=== PATIENT | female | born 2000 | race Caucasian/White ===

== ENCOUNTER 2024-11-25 09:24 | Emergency (ER) | payer OTHER ==
[2024-11-25 09:32] VITALS: TEMP 97.2
--- NOTE | 2024-11-25 09:46 | ERPHSYRPT ---
- History of Present Illness Time Seen by Provider: 11/25/24 09:40 Historian: patient, family Exam Limitations: no limitations Patient Subjective Stated Complaint: PT HERE FOR N/V/D SINCE LAST NIGHT, NO FEVER Triage Nursing Assessment: PT ALERT, WALKED IN, PALE. SKIN WARM AND DRY, RESP EASY, MOVES ALL EXT WELL, NO EDEMA NOTED, ABD SOFT WITH BS Physician History: This is a 24-year-old white female patient who was brought to the emergency department by her spouse secondary to vomiting and diarrhea that began yesterday afternoon/evening. The patient's primary care provider is Dr. Schwartz. Patient's mother and other family members have had similar symptoms. Patient is unable to hold any liquids down. Patient denies chest pain. Patient denies cough. Patient denies shortness of breath. Patient states her abdominal pain has to do with the cramping that she is having as well as the vomiting. Timing/Duration: yesterday Activities at Onset: none Quality: aching, cramping Abdominal Pain Onset Location: generalized abdomen Pain Radiation: no radiation Severity of Pain-Max: moderate Severity of Pain-Current: mild Modifying Factors: Improves With: defecating (Multiple diarrheal stools), vomiting Associated Symptoms: diarrhea, loss of appetite, nausea, vomiting, weakness Previous symptoms: no prior history, no recent treatment Allergies/Adverse Reactions: No Known Drug Allergies Allergy (Verified 11/25/24 09:29) Home Medications: Escitalopram Oxalate [Lexapro] 2.5 mg PO DAILY 11/25/24 [History] Hx Tetanus, Diphtheria Vaccination/Date Given: No Hx Influenza Vaccination/Date Given: Yes Hx Pneumococcal Vaccination/Date Given: No Immunizations Up to Date: Yes Travel Risk - International Travel Have you traveled outside of the country in past 3 weeks: No - Emerging Infectious Disease Are you exhibiting symptoms associated with any current EIDs: Yes Symptoms: Diarrhea, Vomitting - Review of Systems Constitutional: Weakness Eyes: No Symptoms Ears, Nose, & Throat: No Symptoms Respiratory: No Symptoms Cardiac: No Symptoms Abdominal/Gastrointestinal: Abdominal Pain, Nausea, Vomiting, Diarrhea, Appetite Changes Genitourinary Symptoms: No Symptoms Musculoskeletal: No Symptoms Skin: No Symptoms Neurological: No Symptoms Psychological: No Symptoms Endocrine: No Symptoms Hematologic/Lymphatic: No Symptoms Immunological/Allergic: No Symptoms All Other Systems: Reviewed and Negative - Past Medical History Pertinent Past Medical History: Yes GI Medical History: Irritable Bowel Psycho-Social History: Depression Other Medical History: MRSA OF THE THE ARM. IBS - Past Surgical History Past Surgical History: No - Female History Hx Last Menstrual Period: 6 MONTS AGO Hx Now: No - Social History Smoking Status: Never smoker Exposure to second hand smoke: No Drug Use: none Patient Lives Alone: No - Social Determinants of Health Will the patient participate in the screening: Yes Do you worry about a steady place to live?: No Do you have any problems with any of the following?: No known problems In the past 12 months,have you had to go without utilities?: No Transportation Issues: No Has anyone in your support network made you feel unsafe?: No Have you or anyone in your house had to go without enough: No - Nursing Vital Signs Nursing Vital Signs: Initial Vital Signs Temperature 97.2 F 11/25/24 09:32 Pulse Rate 110 H 11/25/24 09:32 Respiratory Rate 16 11/25/24 09:32 Blood Pressure 118/73 11/25/24 09:32 O2 Sat by Pulse Oximetry 97 11/25/24 09:32 Pain Scale Pain Intensity 4 - Physical Exam General Appearance: no apparent distress, alert, anxiety Eye Exam: PERRL/EOMI Ears, Nose, Throat Exam: normal ENT inspection Neck Exam: normal inspection, non-tender, supple, full range of motion Respiratory Exam: normal breath sounds, lungs clear, airway intact, No chest tenderness, No respiratory distress Cardiovascular Exam: tachycardia Gastrointestinal/Abdomen Exam: soft, normal bowel sounds, tenderness (General ized mild), No guarding, No rebound Pelvic Exam: not done Rectal Exam: not done Back Exam: normal inspection, normal range of motion, No CVA tenderness, No vertebral tenderness Extremity Exam: normal inspection, normal range of motion, pelvis stable Neurologic Exam: alert, oriented x 3, cooperative, 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, nml cerebellar function, nml station & gait, sensation nml Skin Exam: normal color, warm, dry Lymphatic Exam: No adenopathy SpO2 Interpretation: normal SpO2: 97 O2 Delivery: Room Air - Course Nursing assessment & vital signs reviewed: Yes Ordered Tests: Active Orders 24 hr Category Date Time Status IV Insertion STAT Care 11/25/24 09:46 Active AMYLASE Stat Lab 11/25/24 10:00 Completed CBC W DIFF Stat Lab 11/25/24 10:00 Completed CMP Stat Lab 11/25/24 10:00 Completed HCG QUALITATIVE, URINE Stat Lab 11/25/24 10:00 Completed LIPASE Stat Lab 11/25/24 10:00 Completed UA W/RFX UR CULTURE Stat Lab 11/25/24 10:00 Completed Medication Summary Generic Name Dose Route Start Last Admin Trade Name Freq PRN Reason Stop Dose Admin Sodium Chloride 1,000 mls @ 999 mls/hr 11/25/24 10:29 Sodium Chloride 0.9% 1000 Ml IV 11/25/24 11:29 .Q1H1M STA Discontinued Medications Generic Name Dose Route Start Last Admin Trade Name Freq PRN Reason Stop Dose Admin Diphenhydramine HCl 12.5 mg 11/25/24 09:47 11/25/24 09:56 Diphenhydramine Hcl 50 Mg/Ml Vial IV 11/25/24 09:48 12.5 mg STAT ONE Administration Diphenhydramine HCl Confirm 11/25/24 09:49 Diphenhydramine Hcl 50 Mg/Ml Vial Administered 11/25/24 09:50 Dose 50 mg .ROUTE .STK-MED ONE Sodium Chloride 1,000 mls @ 999 mls/hr 11/25/24 09:46 11/25/24 09:57 Sodium Chloride 0.9% 1000 Ml IV 11/25/24 10:46 999 mls/hr .Q1H1M STA Administration Sodium Chloride Confirm 11/25/24 09:50 Sodium Chloride 0.9% 1000 Ml Administered 11/25/24 09:51 Dose 1,000 mls @ ud .ROUTE .STK-MED ONE Pantoprazole Sodium 40 mg 11/25/24 09:46 11/25/24 09:57 Pantoprazole 40 Mg Vial IV 11/25/24 09:47 40 mg STAT ONE Administration Pantoprazole Sodium Confirm 11/25/24 09:50 Pantoprazole 40 Mg Vial Administered 11/25/24 09:51 Dose 40 mg IV .STK-MED ONE Prochlorperazine Edisylate 5 mg 11/25/24 09:46 11/25/24 09:56 Prochlorperazine Edisylate 10 Mg/2 Ml Vial IV 11/25/24 09:47 5 mg STAT ONE Administration Prochlorperazine Edisylate Confirm 11/25/24 09:50 Prochlorperazine Edisylate 10 Mg/2 Ml Vial Administered 11/25/24 09:51 Dose 10 mg .ROUTE .[facility]-MED ONE Lab/Rad Data: Laboratory Result Diagrams 11/25/24 10:00 11/25/24 10:00 Laboratory Results 11/25/24 11/25/24 11/25/24 Range/Units 10:00 10:00 10:00 WBC 7.8 (3.98-10.04) x10^3/uL RBC 5.15 (3.93-5.22) x10^6/uL Hgb 16.2 H (11.2-15.7) g/dL Hct 45.3 H (34.1-44.9) % MCV 88.0 (79.4-94.8) fL MCH 31.5 (25.6-32.2) pg MCHC 35.8 H (32.2-35.5) g/dL RDW 11.7 (11.7-14.4) % Plt Count 189 (182-369) x10^3/uL MPV 10.0 (9.4-12.3) fL Gran % 93.6 H (34.0-71.1) % Immature Gran % (Auto) 0.3 (0.001-0.429) % Nucleat RBC Rel Count 0.0 (0.00-0.2) % Eos # (Auto) 0 L (0.04-0.36) x10^3/uL Immature Gran # (Auto) 0.02 (0.001-0.031) x10^3u/L Absolute Lymphs (auto) 0.19 L (1.18-3.74) x10^3/uL Absolute Monos (auto) 0.26 (0.24-0.86) x10^3/uL Absolute Nucleated RBC 0.00 (0.00-0.012) x10^3u/L Lymphocytes % 2.4 L (19.3-51.7) % Monocytes % 3.3 L (4.7-12.5) % Eosinophils % 0.0 L (0.7-5.8) % Basophils % 0.4 (0.1-1.2) % Absolute Granulocytes 7.28 H (1.56-6.13) x10^3/uL Basophils # 0.03 (0.01-0.08) x10^3/uL Sodium 140 (135-145) mmol/L Potassium 3.7 (3.5-5.1) mmol/L Chloride 110 H (98-107) mmol/L Carbon Dioxide 20 L (22-30) mmol/L Anion Gap 14.2 (5-15) MEQ/L BUN 19 H (7-17) mg/dL Creatinine 0.52 (0.52-1.04) mg/dL Estimated GFR 133.0 ML/MIN Glucose 133 H (74-106) mg/dL Calcium 8.9 (8.4-10.2) mg/dL Total Bilirubin 0.70 (0.2-1.3) mg/dL AST 28 (14-36) U/L ALT 35 (0-35) U/L Alkaline Phosphatase 33 L (38-126) U/L Serum Total Protein 7.0 (6.3-8.2) g/dL Albumin 4.6 (3.5-5.0) g/dL Amylase 83 (30-110) U/L Lipase 50 (23-300) U/L Urine Color (Yellow) Urine Appearance (Clear) Urine pH (4.6-8.0) Ur Specific [place] (1.005-1.030) Urine Protein (Negative) Urine Glucose (UA) (Negative) mg/dL Urine Ketones (Negative) Urine Blood (Negative) Urine Nitrite (Negative) Urine Bilirubin (Negative) Urine Urobilinogen (0.2) mg/dL Ur Leukocyte Esterase (Negative) U Hyaline Cast (Auto) (0-2) /LPF Urine Microscopic RBC (0-5) /HPF Urine Microscopic WBC (0-5) /HPF Ur Epithelial Cells (None Seen) /HPF Urine Bacteria (None Seen) /HPF Urine Culture Reflexed (NO) Urine HCG, Qual NEGATIVE (NEGATIVE) 11/25/24 Range/Units 10:00 WBC (3.98-10.04) x10^3/uL RBC (3.93-5.22) x10^6/uL Hgb (11.2-15.7) g/dL Hct (34.1-44.9) % MCV (79.4-94.8) fL MCH (25.6-32.2) pg MCHC (32.2-35.5) g/dL RDW (11.7-14.4) % Plt Count (182-369) x10^3/uL MPV (9.4-12.3) fL Gran % (34.0-71.1) % Immature Gran % (Auto) (0.001-0.429) % Nucleat RBC Rel Count (0.00-0.2) % Eos # (Auto) (0.04-0.36) x10^3/uL Immature Gran # (Auto) (0.001-0.031) x10^3u/L Absolute Lymphs (auto) (1.18-3.74) x10^3/uL Absolute Monos (auto) (0.24-0.86) x10^3/uL Absolute Nucleated RBC (0.00-0.012) x10^3u/L Lymphocytes % (19.3-51.7) % Monocytes % (4.7-12.5) % Eosinophils % (0.7-5.8) % Basophils % (0.1-1.2) % Absolute Granulocytes (1.56-6.13) x10^3/uL Basophils # (0.01-0.08) x10^3/uL Sodium (135-145) mmol/L Potassium (3.5-5.1) mmol/L Chloride (98-107) mmol/L Carbon Dioxide (22-30) mmol/L Anion Gap (5-15) MEQ/L BUN (7-17) mg/dL Creatinine (0.52-1.04) mg/dL Estimated GFR ML/MIN Glucose (74-106) mg/dL Calcium (8.4-10.2) mg/dL Total Bilirubin (0.2-1.3) mg/dL AST (14-36) U/L ALT (0-35) U/L Alkaline Phosphatase (38-126) U/L Serum Total Protein (6.3-8.2) g/dL Albumin (3.5-5.0) g/dL Amylase (30-110) U/L Lipase (23-300) U/L Urine Color Yellow (Yellow) Urine Appearance Clear (Clear) Urine pH 6.0 (4.6-8.0) Ur Specific [place] >=1.030 A (1.005-1.030) Urine Protein Trace A (Negative) Urine Glucose (UA) >=1000 A (Negative) mg/dL Urine Ketones Trace A (Negative) Urine Blood Negative (Negative) Urine Nitrite Negative (Negative) Urine Bilirubin Negative (Negative) Urine Urobilinogen 0.2 (0.2) mg/dL Ur Leukocyte Esterase Negative (Negative) U Hyaline Cast (Auto) NONE SEEN (0-2) /LPF Urine Microscopic RBC 0-2 (0-5) /HPF Urine Microscopic WBC 3-5 (0-5) /HPF Ur Epithelial Cells Rare (None Seen) /HPF Urine Bacteria None Seen (None Seen) /HPF Urine Culture Reflexed NO (NO) Urine HCG, Qual (NEGATIVE) - Progress Progress: improved, re-examined Progress Note: 11/25/24 09:53 My medical decision making and the assignment of moderate complexity to this patient's medical issue today is based on review of the patient's past medical history, review the patient's medication list, review of the patient's drug allergy list, history present illness and physical findings on examination. The workup in this patient includes placement of intravenous line, infusion of normal saline solution, infusion Compazine intravenously, infusion of Benadryl intravenously, infusion of Protonix intravenously, CBC, CMP, amylase, lipase, urinalysis, test. Together, we decided to hold off on ordering a CAT scan of the abdomen pelvis as well as viral studies. 11/25/24 09:54 Differential diagnosis includes but is not limited to , viral illness, urinary tract infection, dehydration 11/25/24 10:54 I have interpreted the patient's laboratory data results. Based on the laboratory data results, the patient has evidence of dehydration. Counseled pt/family regarding: lab results, diagnosis, need for follow-up Medical Desision Making - Independent Historian Additional History obtained from: Spouse - Diagnostic Testing Diagnostic test were ordered, analyzed, and reviewed by me: Yes - Risk of complications Minimal Risk: Minimal risk of morbidity - Departure Departure Disposition: Home Clinical Impression: Vomiting and diarrhea, Viral syndrome, Mild dehydration Condition: Stable Critical Care Time: No Referrals: BREA SCHWARTZ MD [Primary Care Provider] - Follow up/PCP as directed Additional Instructions: Drink plenty of clear liquids before advancing your diet. Avoid fatty greasy spicy foods. Call your primary care provider today, 11/25/2024 to make arrangements for follow-up appointment to be seen in the next 3 to 5 days.
[2024-11-25] MEDS ORDERED: BENADRYL 50 MG/ML ONE (09:49)
[2024-11-25] MEDS ORDERED: Sodium Chloride 0.9% 1000 ML 1,000 ML ONE ×2 (09:50→10:56)
[2024-11-25] MEDS ORDERED: Compazine 10 MG/2 ML ONE (09:50)
[2024-11-25] MEDS ORDERED: PROTONIX 40 MG IV IV ONE (09:50)
[2024-11-25] MEDS: BENADRYL 50 MG/ML IV ONE (09:56)
[2024-11-25] MEDS: Compazine 10 MG/2 ML IV ONE (09:56)
[2024-11-25] MEDS: PROTONIX 40 MG IV IV ONE (09:57)
[2024-11-25] MEDS: Sodium Chloride 0.9% 1000 ML 1,000 ML IV STA ×2 (09:57→10:57)
[2024-11-25 10:05] LABS: Absolute Neutrophil Ct (ANC) 7.28 x10^3/uL (1.56-6.13); BASOPHIL % 0.4 % (0.1-1.2); Basophil (Absolute #) 0.03 x10^3/uL (0.01-0.08); Eosinophil (Absolute #) 0 x10^3/uL (0.04-0.36); Hematocrit 45.3 % (34.1-44.9); Hemoglobin 16.2 g/dL (11.2-15.7); IMMATURE GRAN # 0.02 x10^3u/L (0.001-0.031); IMMATURE GRAN % 0.3 % (0.001-0.429); Lymphocyte (Absolute #) 0.19 x10^3/uL (1.18-3.74); Lymphocytes % 2.4 % (19.3-51.7); Mean Corpuscular Hemoglobin 31.5 pg (25.6-32.2); Mean Corpuscular Hgb Concent. 35.8 g/dL (32.2-35.5); Monocyte (Absolute #) 0.26 x10^3/uL (0.24-0.86); Monocytes % 3.3 % (4.7-12.5); Neutrophil % 93.6 % (34.0-71.1); Platelet Count 189 x10^3/uL (182-369); Red Blood Count 5.15 x10^6/uL (3.93-5.22); Red Cell Distribution Width 11.7 % (11.7-14.4); White Blood Count 7.8 x10^3/uL (3.98-10.04)
[2024-11-25 10:15] LABS: HCG URINE TEST NEGATIVE (NEGATIVE)
[2024-11-25 10:17] LABS: ALBUMIN 4.6 g/dL (3.5-5.0); ANION GAP 14.2 MEQ/L (5-15); BILIRUBIN,TOTAL 0.7 mg/dL (0.2-1.3); Calcium 8.9 mg/dL (8.4-10.2); Creatinine 1 0.52 mg/dL (0.52-1.04); Potassium 3.7 mmol/L (3.5-5.1)
[2024-11-25 10:18] LABS: Appearance Clear (Clear); Bacteria None Seen /HPF (None Seen); Bilirubin Negative (Negative); Blood Negative (Negative); Epithelial Cells Rare /HPF (None Seen); Glucose, Urine >=1000 mg/dL (Negative); Hyaline Casts NONE SEEN /LPF (0-2); Ketones Trace (Negative); Leukocyte Esterase Negative (Negative); Nitrite Negative (Negative); Protein,Urine Dip Trace (Negative); RBC 0-2 /HPF (0-5); Specific Gravity >=1.030 (1.005-1.030); Urobilinogen 0.2 mg/dL (0.2)
[2024-11-25 10:46] VITALS: PULSE 117; RESP 18
[2024-11-25 12:05] VITALS: BP 117/69; O2SAT 98
[2024-11-25 17:00] LABS: Slide Review 1 YES
== END 2024-11-25 12:25 | disposition home or self-care (01) ==
LOC: ED 09:24
DX: R11.2 Nausea with vomiting, unspecified (principal); R19.7 Diarrhea, unspecified; R10.9 Unspecified abdominal pain; E86.0 Dehydration; B34.9 Viral infection, unspecified
CPT/HCPCS: 36415; 80053; 81001; 81025; 82150; 83690; 85025; 96360; 96361; 96374; 96375; 99284; J1200